=== PATIENT | female | born 1940 | race Caucasian/White ===

== ENCOUNTER 2019-11-16 12:47 | Emergency (ER) | payer MEDICARE, OTHER ==
[~2019-11-16] VITALS: Ht 152.4 cm; Wt 64.3 kg
--- NOTE | 2019-11-16 13:30 | NUR ---
Discussed with Dr Lopez how the property technician with [facility] and should be able to get an ultrasound of RLE ordered on [facility].
[2019-11-16] MEDS ORDERED: IRBE75TA9 (13:43)
[2019-11-16] MEDS ORDERED: VERA180T11 (13:43)
--- OUTSIDE RECORDS SUMMARY | 2019-11-16 13:43 | XMS REPORT | Continuity of Care Document ---
Author Organization Unknown Address Unknown Phone Unavailable Allergies There is no data. Medications There is no data. Problems There is no data. Procedures There is no data. Results Test Result Range [facility] - 08/16/18 08:18 GLUCOSE 85 mg/dL 65-99 UREA NITROGEN (BUN) 18 mg/dL 7-25 CREATININE 1.05 mg/dL 0.60-0.88 eGFR NON-AFR. NIGERIAN 50 mL/min/1.73m2 > OR = 60 eGFR 58 mL/min/1.73m2 > OR = 60 BUN/CREATININE RATIO 17 (calc) 6-22 SODIUM 136 mmol/L 135-146 POTASSIUM 4.7 mmol/L 3.5-5.3 CHLORIDE 102 mmol/L 98-110 CARBON DIOXIDE 27 mmol/L 20-32 CALCIUM 9.0 mg/dL 8.6-10.4 PROTEIN, TOTAL 6.2 g/dL 6.1-8.1 ALBUMIN 3.9 g/dL 3.6-5.1 GLOBULIN 2.3 g/dL (calc) 1.9-3.7 ALBUMIN/GLOBULIN RATIO 1.7 (calc) 1.0-2. 5 BILIRUBIN, TOTAL 0.4 mg/dL 0.2-1.2 ALKALINE PHOSPHATASE 97 U/L 33-130 AST 11 U/L 10-35 ALT 8 U/L 6-29 LIPID PANEL - 12/06/18 10:44 CHOLESTEROL, TOTAL 168 mg/dL <200 HDL CHOLESTEROL 72 mg/dL >50 TRIGLYCERIDES 86 mg/dL <150 LDL-CHOLESTEROL 79 mg/dL (calc) NRG CHOL/HDLC RATIO 2.3 (calc) <5.0 NON HDL CHOLESTEROL 96 mg/dL (calc) <130 [facility] - 12/06/18 10:44 GLUCOSE 101 mg/dL 65-139 UREA NITROGEN (BUN) 14 mg/dL 7-25 CREATININE 1.12 mg/dL 0.60-0.88 eGFR NON-AFR. NIGERIAN 46 mL/min/1.73m2 > OR = 60 eGFR 54 mL/min/1.73m2 > OR = 60 BUN/CREATININE RATIO 13 (calc) 6-22 SODIUM 132 mmol/L 135-146 POTASSIUM 4.3 mmol/L 3.5-5.3 CHLORIDE 98 mmol/L 98-110 CARBON DIOXIDE 26 mmol/L 20-32 CALCIUM 8.9 mg/dL 8.6-10.4 PROTEIN, TOTAL 6.3 g/dL 6.1-8.1 ALBUMIN 3.8 g/dL 3.6-5.1 GLOBULIN 2.5 g/dL (calc) 1.9-3.7 ALBUMIN/GLOBULIN RATIO 1.5 (calc) 1.0-2. 5 BILIRUBIN, TOTAL 0.5 mg/dL 0.2-1.2 ALKALINE PHOSPHATASE 91 U/L 33-130 AST 12 U/L 10-35 ALT 11 U/L 6-29 CBC w/MANUAL DIFF - 12/06/18 10:44 WHITE BLOOD CELL COUNT 6.5 Thousand/uL 3 .8-10.8 RED BLOOD CELL COUNT 4.26 Million/uL 3.8 0-5.10 HEMOGLOBIN 13.0 g/dL 11.7-15.5 HEMATOCRIT 39.3 % 35.0-45.0 MCV 92.3 fL 80.0-100.0 MCH 30.5 pg 27.0-33.0 MCHC 33.1 g/dL 32.0-36.0 RDW 13.3 % 11.0-15.0 PLATELET COUNT 241 Thousand/uL 140-400 MPV 9.8 fL 7.5-12.5 ABSOLUTE NEUTROPHILS 3744 cells/uL 1500- 7800 ABSOLUTE MONOCYTES 527 cells/uL 200-950 ABSOLUTE EOSINOPHILS 462 cells/uL 15-500 ABSOLUTE BASOPHILS 65 cells/uL 0-200 NEUTROPHILS 57.6 % NRG LYMPHOCYTES 26.2 % NRG MONOCYTES 8.1 % NRG EOSINOPHILS 7.1 % NRG BASOPHILS 1.0 % NRG ABSOLUTE LYMPHOCYTES 1703 cells/uL 850-3 900 PLATELET ESTIMATION ADEQUATE ADEQUATE CBC MORPHOLOGY NORMAL CMP - 03/07/19 08:14 GLUCOSE 83 mg/dL 65-99 UREA NITROGEN (BUN) 13 mg/dL 7-25 CREATININE 1.16 mg/dL 0.60-0.88 eGFR NON-AFR. NIGERIAN 44 mL/min/1.73m2 > OR = 60 eGFR 51 mL/min/1.73m2 > OR = 60 BUN/CREATININE RATIO 11 (calc) 6-22 SODIUM 139 mmol/L 135-146 POTASSIUM 4.3 mmol/L 3.5-5.3 CHLORIDE 103 mmol/L 98-110 CARBON DIOXIDE 28 mmol/L 20-32 CALCIUM 9.3 mg/dL 8.6-10.4 PROTEIN, TOTAL 6.0 g/dL 6.1-8.1 ALBUMIN 3.8 g/dL 3.6-5.1 GLOBULIN 2.2 g/dL (calc) 1.9-3.7 ALBUMIN/GLOBULIN RATIO 1.7 (calc) 1.0-2. 5 BILIRUBIN, TOTAL 0.5 mg/dL 0.2-1.2 ALKALINE PHOSPHATASE 115 U/L 33-130 AST 15 U/L 10-35 ALT 11 U/L 10-09 [facility] 06/07/19 09:22 GLUCOSE 84 mg/dL 65-99 UREA NITROGEN (BUN) 14 mg/dL 7-25 CREATININE 1.08 mg/dL 0.60-0.88 eGFR NON-AFR. NIGERIAN 48 mL/min/1.73m2 > OR = 60 eGFR 56 mL/min/1.73m2 > OR = 60 BUN/CREATININE RATIO 13 (calc) 6-22 SODIUM 137 mmol/L 135-146 POTASSIUM 4.4 mmol/L 3.5-5.3 CHLORIDE 102 mmol/L 98-110 CARBON DIOXIDE 26 mmol/L 20-32 CALCIUM 8.9 mg/dL 8.6-10.4 PROTEIN, TOTAL 6.2 g/dL 6.1-8.1 ALBUMIN 3.8 g/dL 3.6-5.1 GLOBULIN 2.4 g/dL (calc) 1.9-3.7 ALBUMIN/GLOBULIN RATIO 1.6 (calc) 1.0-2. 5 BILIRUBIN, TOTAL 0.5 mg/dL 0.2-1.2 ALKALINE PHOSPHATASE 97 U/L 37-153 AST 12 U/L 10-35 ALT 8 U/L 10-09 [facility] 09/02/19 09:16 GLUCOSE 96 mg/dL 65-99 UREA NITROGEN (BUN) 15 mg/dL 7-25 CREATININE 1.00 mg/dL 0.60-0.88 eGFR NON-AFR. NIGERIAN 53 mL/min/1.73m2 > OR = 60 eGFR 61 mL/min/1.73m2 > OR = 60 BUN/CREATININE RATIO 15 (calc) 6-22 SODIUM 137 mmol/L 135-146 POTASSIUM 4.5 mmol/L 3.5-5.3 CHLORIDE 101 mmol/L 98-110 CARBON DIOXIDE 25 mmol/L 20-32 CALCIUM 9.2 mg/dL 8.6-10.4 PROTEIN, TOTAL 6.3 g/dL 6.1-8.1 ALBUMIN 4.0 g/dL 3.6-5.1 GLOBULIN 2.3 g/dL (calc) 1.9-3.7 ALBUMIN/GLOBULIN RATIO 1.7 (calc) 1.0-2. 5 BILIRUBIN, TOTAL 0.5 mg/dL 0.2-1.2 ALKALINE PHOSPHATASE 108 U/L 37-153 AST 12 U/L 10-35 ALT 10 U/L 6-29 Encounters ACCT No. Visit Date/Time Discharge Status Pt. Type Provider Facility Loc./Unit Complaint [id number] 06/08/2019 09:15:00 06/08/2019 23:59: 59 CLS Outpatient [facility] [id number] 09/02/2019 08:00:00 Document Registration [id number] 06/07/2019 08:45:00 Document Registration [id number] 03/07/2019 08:00:00 Document Registration [id number] 12/06/2018 10:30:00 Document Registration [id number] 08/16/2018 09:00:00 Document Registration [id number] 11/16/2019 12:51:[address] Emergency KRIS BLOOM DO [facility] ER FS RT LEG PAIN
--- OUTSIDE RECORDS SUMMARY | 2019-11-16 13:43 | XMS REPORT ---
Author Author [facility] Address [address] [place] [address] Care Team Providers Care Heel Cutter Name Role Phone LOTUS NAVARRO Unavailable PROBLEMS Type Condition ICD9-CM Code [id number] Code Onset Dates Condition S tatus SNOMED Code Problem Sjoegren syndrome M35.00 Active 83 115281 Problem Non morbid obesity E66.9 Active 4 25761170 Problem Chronic gastroesophageal reflux disease K21.9 Active 024562640 Problem Chronic hyponatremia E87.1 Active 42814060 Problem Cardiac murmur, previously undiagnosed R01.1 Active 751410891 Problem Chronic kidney disease, stage 3 N18.3 Active 327254008 Problem AK (actinic keratosis) L57.0 Active 161207739 Problem Benign essential HTN I10 Active 68774439 Problem 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 Active 415 1351931273 Problem Chronic edema R60.9 Active 031978 07 Problem Esophageal spasm K22.4 Active 799 85287 Problem Hyperglycemia R73.9 Active 638896 07 Problem Arthritis M19.90 Active 0611208 ALLERGIES No Information ENCOUNTERS Encounter Location Date Diagnosis [address] [address] Nov, [address] [address] Sep, [address] [address] August, Chronic hyponatremia E87.1 and Benign es sential HTN I10 [address] [address] August, [address] [address] August, [address] [address] August, Benign essential HTN I10 [address] [address] Jun, [address] [address] May, Benign essential HTN I10 ; Chronic kidne y disease, stage 3 N18.3 ; Chronic edema R60.9 ; Chronic gastroesophageal reflux disease K21.9 ; Esophageal spasm K22.4 ; 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 ; Cardiac murmur, previously undiagnosed R01.1 ; Hyperglycemia R73.9 ; Chronic hyponatremia E87.1 ; Non morbid obesity E66.9 ; Arthritis M19.90 ; Sjoegren syndrome M35.00 and AK (actinic keratosis) L57.[address] [address] May, [facility] [address] [place] [address] May, Acute nasopharyngitis J00 IMMUNIZATIONS No Known Immunizations SOCIAL HISTORY Never Assessed REASON FOR VISIT change Losartan to Irbesartan PLAN OF CARE VITAL SIGNS MEDICATIONS Medication Instructions Dosage Frequency Start Date End Date Duration S tatus Irbesartan 75 MG Orally Once a day 1 tablet 24h Jun, 30 day(s) Active RESULTS No Results PROCEDURES No Known procedures INSTRUCTIONS MEDICATIONS ADMINISTERED No Known Medications MEDICAL (GENERAL) HISTORY Type Description Date Medical History Chronic kidney disease, stage 3 Medical History Chronic edema Medical History Chronic gastroesophageal reflux disease Medical History Esophageal spasm Medical History Facial neuralgia Medical History Cardiac murmur, previously undiagnosed Medical History Hyperglycemia Medical History Chronic hyponatremia Medical History Non morbid obesity Medical History Arthritis Medical History Sjoegren syndrome Medical History AK (actinic keratosis) Medical History Benign essential HTN Surgical History tonsillectomy Surgical History breast reconstruction Surgical History cataract removal Surgical History eye lid Surgical History retinal pucker repair Hospitalization History see surgeries
--- OUTSIDE RECORDS SUMMARY | 2019-11-16 13:43 | XMS REPORT ---
Author Author Indu NAVARRO [facility] Address [address] [place] [address] Care Team Providers Care Milk Bottler Name Role Phone LOTUS NAVARRO Unavailable PROBLEMS Type Condition ICD9-CM Code IFD26-OS Code Onset Dates Condition S tatus SNOMED Code Problem Sjoegren syndrome M35.00 Active 83 260684 Problem Non morbid obesity E66.9 Active 4 24930237 Problem Chronic gastroesophageal reflux disease K21.9 Active 596824197 Problem Chronic hyponatremia E87.1 Active 07092377 Problem Cardiac murmur, previously undiagnosed R01.1 Active 523316961 Problem Chronic kidney disease, stage 3 N18.3 Active 763161659 Problem AK (actinic keratosis) L57.0 Active 621410615 Problem Benign essential HTN I10 Active 67294703 Problem 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 Active 415 2242432471 Problem Chronic edema R60.9 Active 067747 07 Problem Esophageal spasm K22.4 Active 799 13494 Problem Hyperglycemia R73.9 Active 934614 07 Problem Arthritis M19.90 Active 0674246 ALLERGIES Substance Reaction Event Type Date Status Cortisone Unknown Drug Allergy May, Active Percocet nausea and vomiting Drug Allergy May, Active Lisinopril hives Drug Allergy May, Active ENCOUNTERS Encounter Location Date Diagnosis [facility] [address] [place] [address] August, [facility] [address] [place] [address] May, [address] [address] May, [facility] [address] [place] [address] 07 May, 2018 Acute nasopharyngitis J00 IMMUNIZATIONS No Known Immunizations SOCIAL HISTORY Never Assessed REASON FOR VISIT PLAN OF CARE VITAL SIGNS MEDICATIONS Medication Instructions Dosage Frequency Start Date End Date Duration S tatus Lansoprazole 30 MG Orally Once a day 1 capsule 24h 9 0 days Active Restasis 0.05 % Ophthalmic Twice a day 1 drop into affected eye 12h Active Verapamil HCl ER 180 MG Orally Once a day 1 capsule 24h 30 day(s) Active Sucralfate 1 GM Orally Twice a day 1 tablet on an empty stomach 12h 30 day(s) Active Torsemide 20 MG Orally daily i tablet as needed for edema 24h 90 days Active Hydroxychloroquine Sulfate 200 MG Orally Once a day 1 tabl et with food or milk as needed 24h 10 day(s) Active Aspirin 81 81 MG Orally Once a day 1 tablet 24h 30 d ay(s) Active Diclofenac Sodium 25 MG Orally 2 times a day 1 tablet with food or mil k 12h 90 days Active Cozaar 50 MG Orally Once a day 1 tablet 24h 90 days Active RESULTS No Results PROCEDURES No Known [...]
--- NOTE | 2019-11-16 14:41 | ED Lower Extremity ---
General Chief Complaint: Lower Extremity Stated Complaint: RT LEG PAIN History of Present Illness Date Seen by Provider: Nov 16, 2019 Time Seen by Provider: 14:36 Initial Comments Patient presenting to emergency department for evaluation of right calf pain and swelling. She says she was up most of the day yesterday as yesterday was election day and she says that her legs are swollen in the evening she had more pain in her right calf region that has been sore through the night and through the day. She thinks that her father from a blood clot and wants to be evaluated for a DVT. Patient denies any trauma or unilateral weakness numbness or tingling. She is in no obvious distress with normal vital signs. Allergies and Home Medications Allergies Coded Allergies: lisinopril (Unverified Adverse Reaction, Intermediate, hives, 11/16/19) acetaminophen (Unverified Adverse Reaction, Mild, Nausea and Vomiting, 11/16/19) oxycodone (Unverified Adverse Reaction, Mild, Nausea and Vomiting, 11/16/19) cortisone (Unverified Adverse Reaction, Unknown, 11/16/19) Patient Home Medication List Home Medication List Reviewed: Yes Review of Systems Constitutional: no symptoms reported EENTM: no symptoms reported Respiratory: no symptoms reported Cardiovascular: edema Musculoskeletal: muscle pain Skin: no symptoms reported Psychiatric/Neurological: No Symptoms Reported Past Ntacnby-Fmvmkg-Qlvywk Hx Patient Social History Recent Foreign Travel: No Contact w/Someone Who Travel: No Physical Exam Vital Signs Vital Signs - First Documented 11/16/19 13:24 Temp 36.2 Pulse 65 Resp 20 B/P (MAP) 144/58 (86) Pulse Ox 97 O2 Delivery Room Air Capillary Refill : Height, Weight, BMI Height: '" Weight: lbs. oz. kg; BMI Method: General Appearance: WD/WN, no apparent distress Cardiovascular: regular rate, rhythm Respiratory: no respiratory distress Ankles: bilateral ankle swelling (R PTE slightly worse than left. No pain with palpation or ROM of R knee or ankle) Neurologic/Tendon: normal sensation, normal motor functions, normal tendon functions Skin: warm/dry (no pain or erythema) 2+ DP and SOFTWARE DEVELOPER pulse BL Progress/Results/Core Measures Results/Orders My Orders Orders - KRIS BLOOM DO Us Venous Lower Ext Rt (11/16/19 13:35) Vital Signs/I&O 11/16/19 13:24 Temp 36.2 Pulse 65 Resp 20 B/P (MAP) 144/58 (86) Pulse Ox 97 O2 Delivery Room Air Progress Progress Note : Progress Note Patient with lower extremity edema bilaterally that is slightly worse on the right side I will get an ultrasound to rule out DVT. There is no signs of infection arterial insufficiency compartment syndrome or other acute pathology. Ultrasound showed no sign of DVT however does show the edema and possible inflammation around her muscle but no drainable fluid collection. There is no pain on exam so do not suspect infection or compartment syndrome. Her neurovascular exam is normal so she'll be discharged in stable condition told to rest her leg put ice on it were compression stockings elevated as much as possible and she can take NSAIDs for pain. She was told to follow with her primary care provider later this week or early next week to ensure improvement and come back to the ED sooner with worsening pain fevers or logic changes or other general concerns. Patient aware and agreeable with plan and verbalized understanding of the above instructions. Departure Impression Primary Impression: Edema of right lower extremity Disposition: HOME, SELF-CARE Condition: Stable Departure-Patient Inst. Referrals: SELF,LOTUS CHRISTIAN (PCP/Family) Primary Care Physician KRIS BLOOM DO Nov 16, 2019 14:41
--- NOTE | 2019-11-16 14:56 | Diagnostic Imaging Report ---
PROCEDURE: US right lower extremity venous. TECHNIQUE: Multiple Real-time grayscale images were obtained over the right lower extremity in various projections. Additional spectral analysis and color Doppler duplex images were also obtained. INDICATION: Right lower extremity pain and swelling. COMPARISON: None available. FINDINGS: The visualized deep venous structures of the right lower extremity demonstrate normal compression, flow, and augmentation. There is moderate superficial edema in the lower aspect of the right leg. In the area of pain as reported by the patient, there is a thin rim of simple appearing fluid adjacent to the nearby musculature in the posterior aspect of the lower leg. This is difficult to completely characterize but extends up to at least 6.3 cm in length. IMPRESSION: No evidence of DVT in the right lower extremity. There is marked superficial edema in the right lower extremity. In the area of the patient's reported pain, there is a thin rim of simple appearing fluid adjacent to the musculature which is likely reactive in nature and/or related to edema. No drainable/focal fluid collection is appreciated. Dictated by: Dictated on workstation # [id number]
[2019-11-16 15:10] VITALS: BP 141/62
== END 2019-11-16 15:10 | disposition home or self-care (01) ==
LOC: ER FS 12:51
DX: R60.0 Localized edema (principal); M79.661 Pain in right lower leg; Z88.8 Allergy status to other drugs, medicaments and biological substances; Z88.5 Allergy status to narcotic agent

== ENCOUNTER → 2021-02-21 | Outpatient (CLI) | payer MEDICARE, OTHER ==
[~2021-02-21] MED LIST: IRBE75TA9; VERA180T55
--- NOTE | 2021-02-21 15:31 | Diagnostic Imaging Report ---
PROCEDURE: CT head without contrast. TECHNIQUE: Multiple contiguous axial images were obtained through the brain without the use of intravenous contrast. Auto Exposure Controls were utilized during the CT exam to meet ALARA standards for radiation dose reduction. INDICATION: Intermittent head pain at the skull base, the temples, and retro-orbital. COMPARISON: I have no priors. FINDINGS: There is some chronic symmetrical cortical atrophy, greatest in the frontal and temporal lobes. There is no hydrocephalus. 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 No sulcal effacement. No evidence for cerebral edema. No acute appearing pathology evident. The basilar cisterns are patent. There is no sulcal effacement. There is presumed postsurgical distortion of the left globe. Orbits and paranasal sinuses appear nonacute. Sinuses are clear. There is no mastoid effusion. The bony skull base and calvarium had an unremarkable appearance. 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 No cerebral edema, hemorrhage, or acute finding. Dictated by: Dictated on workstation # [id number]
== END ==
LOC: RAD FS 13:34
PROVIDERS: ATTEND Family Medicine
DX: G31.9 Degenerative disease of nervous system, unspecified (principal); I63.9 Cerebral infarction, unspecified
CPT/HCPCS: 70450

== ENCOUNTER 2022-12-19 21:48 | Emergency (ER) | payer MEDICARE, OTHER ==
[~2022-12-19] VITALS: Ht 147 cm; Wt 60.0 kg
--- NOTE | 2022-12-19 22:10 | ED General ---
General Stated Complaint: HIGH BP FOR 2 WEEKS Source of Information: Patient Exam Limitations: No Limitations History of Present Illness Date Seen by Provider: Dec 19, 2022 Time Seen by Provider: 22:03 Initial Comments 82-year-old female presents emergency department today for elevated blood pressure. She states its been steadily climbing for the last 2 weeks. It has been greater than 200 in the last couple of days but she states it has not been that high this evening. She is relatively asymptomatic with regard to this. No changes in her current blood pressure medications recently. No new medicines. She specifically denies headache, changes in vision, chest pain. All other systems reviewed and negative except documented per HPI. Voice recognition software was used to help create this chart Allergies and Home Medications Allergies Coded Allergies: lisinopril (Unverified Adverse Reaction, Intermediate, hives, 11/16/19) acetaminophen (Unverified Adverse Reaction, Mild, Nausea and Vomiting, 11/16/19) oxycodone (Unverified Adverse Reaction, Mild, Nausea and Vomiting, 11/16/19) cortisone (Unverified Adverse Reaction, Unknown, 11/16/19) Patient Home Medication List Home Medication List Reviewed: Yes Irbesartan (Irbesartan) 75 Mg Tablet, (Reported) Entered as Reported by: BRUCE ARIAS on 11/16/19 1343 Verapamil HCl (Verapamil ER) 180 Mg Tablet.er, (Reported) Entered as Reported by: BRUCE ARIAS on 11/16/19 1343 Review of Systems Review of Systems Constitutional: see HPI Past Ipbqbih-Fgyznc-Razjqe Hx Patient Social History Tobacco Use?: No Use of E-Cig and/or Vaping dev: No Substance use?: No Alcohol Use?: No Seasonal Allergies Seasonal Allergies: Yes (Seasonal allergic rhinitis) Past Medical History Surgeries: Yes (Breast reduction) Adenoidectomy, Tonsillectomy Respiratory: Yes Asthma Cardiac: Yes (Systolic murmur) Heart Murmur, Hypertension Neurological: Yes (Tension headaches) Genitourinary: Yes (Renal Insufficiency, CKD stage 3) UTI-Chronic Gastrointestinal: Yes Gastroesophageal Reflux Musculoskeletal: Yes (Facial pain syndrome, Sjogren's syndrome, OA, TMJ arthralgia) Arthritis Endocrine: Yes (Hx of Hyponatremia, Hypokalemia, Hyperglycemia) Integumentary: No Physical Exam Vital Signs Capillary Refill : Height, Weight, BMI Height: '" Weight: lbs. oz. kg; 27.00 BMI Method: General Appearance: No Apparent Distress, WD/WN Eyes: Bilateral Eye Normal Inspection, Bilateral Eye PERRL, Bilateral Eye EOMI HEENT: Normal ENT Inspection, Pharynx Normal Neck: Non Tender, Supple Respiratory: Chest Non Tender, Lungs Clear, Normal Breath Sounds, No Accessory Muscle Use, No Respiratory Distress Cardiovascular: Regular Rate, Rhythm, No Murmur, Normal Peripheral Pulses Gastrointestinal: Normal Bowel Sounds, No Organomegaly, Non Tender, Soft Extremity: Normal Capillary Refill, Normal Inspection, Non Tender Neurologic/Psychiatric: Alert, Oriented x3 Skin: Normal Color, Warm/Dry Progress/Results/Core Measures Suspected Sepsis SIRS Temperature: Pulse: Respiratory Rate: Blood Pressure / Mean: Results/Orders Vital Signs/I&O Capillary Refill : Departure Communication (Admissions) Patient's initial blood pressure is 194 systolic. Subsequent blood pressures down in the 160s systolic. She is asymptomatic without any headache vision changes chest pain. She has been on the same blood pressure medicines for quite some time. Advised her to keep a log of her blood pressures twice a day and follow-up with her primary doctor for recommendations of blood pressure management further. She will return to the emergency department for any severe headaches that is not controlled with Tylenol ibuprofen, vision changes or chest pain. No indication for lab work, EKG or chest imaging at this time. Impression Primary Impression: Hypertension Qualified Codes: I10 - Essential (primary) hypertension Disposition: HOME, SELF-CARE Condition: Stable Departure-Patient Inst. Referrals: SELF,LOTUS CHRISTIAN (PCP/Family) Primary Care Physician Patient Instructions: High Blood Pressure ED Add. Discharge Instructions: Please keep a log of your blood pressures twice a day at random times during the day and take this to your primary doctor's office. I will call them on Thursday to schedule a follow-up appointment. If you cannot get in sooner, keep your appointment on the . Return to the emergency department immediately if you develop any severe headaches that are not controlled with Tylenol or ibuprofen, changes in vision or chest pain. PHUC ANDRADE DO Dec 19, 2022 22:10
[2022-12-19 22:28] VITALS: BP 186/88
== END 2022-12-19 22:28 | disposition home or self-care (01) ==
LOC: EDUNIT# 21:48 → ER FS 21:49
DX: I10 Essential (primary) hypertension (principal)
CPT/HCPCS: 99281